=== PATIENT | male | born 1945 | race Asian ===

== ENCOUNTER 2018-02-20 10:51 | Observation (INO) | payer OTHER ==
[~2018-02-20] VITALS: Ht 165.1 cm; Wt 65.8 kg
--- NOTE | 2018-02-20 11:36 | ED CARDIAC/CP/PALPITATIONS ---
History of Present Illness General Chief Complaint: Chest Pain Stated Complaint: CP Source: patient, family Exam Limitations: no limitations Vital Signs & Intake/Output Vital Signs & Intake/Output Vital Signs Date Time Temp Pulse Resp B/P B/P Pulse O2 O2 Flow FiO2 Mean Ox Delivery Rate 02/20 1821 97.9 67 16 163/76 98 Room Air 02/20 1603 79 168/77 02/20 1533 97.3 49 21 173/83 02/20 1533 97.3 49 21 173/83 97 Room Air 02/20 1445 98.4 51 18 182/84 95 Room Air 02/20 1321 96.6 48 18 182/86 97 Room Air 02/20 1139 Room Air 02/20 1058 96.8 54 16 184/84 97 Allergies Coded Allergies: Penicillins (FEEL SICK PER PT 02/20/18) Sulfa (Sulfonamide Antibiotics) (+N +V 02/20/18) iodine (ITCHY 02/20/18) Reconcile Medications Allopurinol 300 MG TABLET 0.5 TAB PO DAILY GOUT (Reported) Atorvastatin Calcium 20 MG TABLET 1 TAB PO DAILY CHOLESTEROL (Reported) Azelastine/Fluticasone (Dymista Nasal Sebastian) 137 MCG-50 MCG/SPRAY SPRAY.PUMP 1 SPRAY NASB QPM ALLERGIES (Reported) Celecoxib 200 MG CAPSULE 1 CAP PO DAILY PAIN (Reported) Fenofibrate 160 MG TABLET 1 TAB PO DAILY CHOLESTEROL (Reported) Latanoprost (Xalatan) 0.005 % DROPS 1 GTT OS QPM GLAUCOMA (Reported) Triage Note: PT PRESENTS TO THE ER C/O HTN AND CHEST TIGHTNESS. PT STATES THAT THE BACK OF HIS HEAD FEELS TIGHT AND PAINFUL. PT ALSO STATES THAT HE IS NAUSEOUS. PT STATES THAT HIS LEFT ARM FEELS WEAK. PT ALSO STATES THAT HE FEELS HIS BREATH IS SHORT. PT STATES THAT HE FEELS MORE SHORT OF BREATH ON EX Triage Nurses Notes Reviewed? yes Onset: Abrupt Duration: day(s):, week(s): Timing: recent history Quality/Severity: moderate, severe Location: central Radiation: no radiation HPI: 72-year-old male comes into the emergency room for further evaluation of chest pain. Patient reports that he had a recent stress test this past October which was normal. No prior history of heart attacks. He reports that he for the past month has been experiencing some chest tightness that is intermittent. Some shortness of breath with exertion. Today he reported some nausea when he woke up. Denies any palpitations. Denies any abdominal pains. Denies any blood in his stool. Denies any dizziness. Denies any syncopal episodes. He saw his food service kitchen supervisor today who told him to come to the hospital to get more in depth testing done. Dr. Pimentel. (Patrick Jacques) Past History Travel History Traveled to [place] past 21 day No Medical History Any Pertinent Medical History? see below for history EENT: cataracts, glaucoma Cardiovascular: hypertension Renal: benign prost hyperplasia Surgical History Surgical History: non-contributory Psychosocial History What is your primary language Portuguese Tobacco Use: Never used Family History Hx Contributory? No (Patrick Jacques) Review of Systems Review of Systems Constitutional: Reports: no symptoms. EENTM: Reports: no symptoms. Respiratory: Reports: see HPI. Cardiovascular: Reports: see HPI. GI: Reports: no symptoms. Genitourinary: Reports: no symptoms. Musculoskeletal: Reports: no symptoms. Skin: Reports: no symptoms. Neurological/Psychological: Reports: no symptoms. Hematologic/Endocrine: Reports: no symptoms. Immunologic/Allergic: Reports: no symptoms. All Other Systems: Reviewed and Negative (Patrick Jacques) Physical Exam Physical Exam General Appearance: well developed/nourished, alert, awake Head: atraumatic, normal appearance Eyes: Bilateral: normal appearance, EOMI. Ears, Nose, Throat: normal ENT inspection, hearing grossly normal Neck: normal inspection Respiratory: normal breath sounds, no respiratory distress Cardiovascular: regular rate/rhythm Gastrointestinal: soft, non-tender Back: normal inspection Extremities: normal inspection, normal range of motion, no edema Neurologic/Psych: no motor/sensory deficits, awake, alert, oriented x 3, normal mood/affect, health and wellness instructor II-XII nml as tested Skin: intact, normal color Core Measures ACS in differential dx? No CVA/TIA Diagnosis No Sepsis Present: No Sepsis Focused Exam Completed? No (Patrick Jacques) Progress Differential Diagnosis: AMI, aortic dissection, atrial fibrillation, CHF/pulm edema, costochondritis, intracranial hemorrhage, musculoskeletal pain, myocarditis, pancreatitis, pericarditis, pneumonia, pneumothorax, pulmonary embolism, PUD/GERD, sepsis, unstable angina Plan of Care: Orders Procedure Date/time Status Regular Diet 02/21 D Active Heart Healthy Diet 02/21 B Active Regular Diet 02/20 D Active TROPONIN LEVEL 02/20 2300 Active EKG 02/20 2300 Active ECHOCARDIOGRAM 02/20 1823 Active Pathway - chart 02/20 1738 Active Code Status 02/20 1738 Active Patient Data 02/20 1557 Active OXYGEN SETUP (GEN) 02/20 1551 Active Saline Lock 02/[address] in observation 02/20 1551 Active Vital Signs 02/20 1551 Active Activity/Ambulation 02/20 1551 Active Code Status 02/20 1551 Complete TROPONIN LEVEL 02/20 1540 Complete EKG 02/20 1540 Active Add-on Test (ER Only) 02/20 1342 Active Intake & Output 02/20 1237 Active THYROID STIMULATING HORMONE 02/20 1140 Active TOTAL TRIODOTHYROXINE 02/20 1140 Active FREE T4 02/20 1140 Active Telemetry/Metal Furrer 02/20 1136 Active TROPONIN LEVEL 02/20 1136 Active PARTIAL THROMBOPLASTIN TIME 02/20 1136 Complete PROTHROMBIN TIME 02/20 1136 Complete D-DIMER 02/20 1136 Complete COMPREHENSIVE METABOLIC PANEL 02/20 1136 Active CBC WITHOUT DIFFERENTIAL 02/20 1136 Complete NIH Stroke Scale 02/20 1109 Active EKG 02/20 1053 Active TRC EVALUATION (GEN) 02/20 UNK Active Saline Lock 02/20 UNK Active House Staff 02/20 UNK Active Lab Add-on Test 02/20 UNK Active VTE Mechanical Prophylaxis 02/20 UNK Active Vital Signs 02/20 UNK Active Intake & Output 02/20 UNK Active Current Medications Sig/Fadi Start time Last Medication Dose Stop Time Status Admin Allopurinol 150 MG DAILY 02/21 1000 AC (Zyloprim) Amlodipine Besylate 5 MG DAILY 02/21 1000 UNVr (Norvasc) Fenofibrate 160 MG DAILY 02/21 1000 UNVr (Tricor) Omeprazole 40 MG DAILY AC 02/21 0700 CAN (Prilosec) Famotidine 20 MG BID 02/20 2200 UNVr (Pepcid) Heparin Sodium 5,000 UNIT Q8 02/20 2200 AC (Porcine) Latanoprost 1 GTT QPM 02/20 2200 AC (Xalatan) Atorvastatin Calcium 40 MG 1700 02/20 1745 AC (Lipitor) Laboratory Tests 02/20/18 1540: Troponin I < 0.01 02/20/18 1140: Anion Gap 14, Estimated GFR > 60, BUN/Creatinine Ratio 31.1 H, Glucose 87, Calcium 10.7 H, Total Bilirubin 1.0, AST 40, ALT 23, Alkaline Phosphatase 31, Troponin I < 0.01, Total Protein 7.7, Albumin 4.4, Globulin 3.3, Albumin/ Globulin Ratio 1.3, TSH 2.750, Free T4 Pending, Total T3 Pending, PT 11.2, INR 1.03, APTT 38 H, D-Dimer High Sensitivty < 200, CBC w Diff NO MAN DIFF REQ, RBC 3.91 L, MCV 101.0 H, MCH 35.2 H, MCHC 34.8, RDW 15.1 H, MPV 9.9, Gran % 53.6 , Lymphocytes % 35.6, Monocytes % 8.5, Eosinophils % 1.8, Basophils % 0.5, Absolute Granulocytes 2.3, Absolute Lymphocytes 1.5, Absolute Monocytes 0.4, Absolute Eosinophils 0.1, Absolute Basophils 0 Diagnostic Imaging: Viewed by Me: Radiology Read, CT Scan. Discussed w/RAD: Radiology Read, CT Scan. Radiology Impression: PATIENT: BENNY STORY PRESENT AGE: 72 PATIENT ACCOUNT NO: [id number] : 43 LOCATION: [facility] ORDERING PHYSICIAN: Patrick CAMARILLO SERVICE DATE: 02/20/18-1342 EXAM TYPE: CAT - CT CHEST WO IV CONTRAST EXAMINATION: CT CHEST WITHOUT CONTRAST CLINICAL INFORMATION: 72-year-old male with chest pain. Possible abnormality of right upper lung. COMPARISON: CXR from 02/20/2018 TECHNIQUE: Multidetector volumetric CT imaging of the chest was done. Axial MIP volume rendering provided. Sagittal and coronal reformatted images were obtained. DLP: 214 mGy-cm FINDINGS: LUNGS AND PLEURA: Trachea and central airways are widely patent and normal in caliber. Mild centrilobular emphysema. Mild atelectasis in dependent aspect of each lower lobe. Small nodules measuring up to 0.3 cm of the right middle lobe along the minor fissure (images 232 and 237, series 4). Also, there are a few other noncalcified, solid nodules of the right middle lobe, largest measuring up to 0.4 cm. No pulmonary mass, consolidation, edema or pleural effusion. MEDIASTINUM : The heart size is normal. Moderate atherosclerotic calcification of coronary arteries and thoracic aorta without aortic aneurysm. No pericardial effusion. No mediastinal mass. The esophagus and thyroid gland are unremarkable. LYMPHATICS: No pathologic sized axillary, hilar or mediastinal lymph nodes. UPPER ABDOMEN: There are cysts measuring 2.6 cm AP and 3 cm AP of the visualized left kidney. 1.2 cm cortical cyst of the partially visualized right kidney. Adrenal glands are unremarkable. There is a 0.5 cm calcification of the liver adjacent to the gallbladder fossa. No suspicious liver lesion observed on these noncontrast images. SKELETAL AND CHEST WALL: No aggressive osseous lesions. The opacity described on the recent chest radiograph represents hypertrophy (of no clinical significance) of the right anterior first rib end. IMPRESSION: 1. Small, noncalcified nodules of the right middle lobe measuring up to 0.4 cm. Based on the updated guidelines from the Fleischner Society, for nodules of this size, routine CT follow-up is not required in a low-risk patient and is considered optional at 12 months in a high risk patient. 2. Mild centrilobular emphysema. DICTATED BY: Chavez Davis MD DATE/TIME DICTATED:02/20/181445 SCRAP HANDLER:ANGELA DATE/TIME TRANSCRIBED:02/20/181445 CONFIDENTIAL, DO NOT COPY WITHOUT APPROPRIATE AUTHORIZATION. <Electronically signed in Other Vendor System> SIGNED BY: Chavez Davis MD 02/20/18 1459, PATIENT: BENNY STORY PRESENT AGE: 72 PATIENT ACCOUNT NO: [id number] : 43 LOCATION: [facility] ORDERING PHYSICIAN: Patrick CAMARILLO SERVICE DATE: 02/20/186 EXAM TYPE: RAD - XRY-CHEST XRAY, TWO VIEWS EXAMINATION: XR CHEST CLINICAL INFORMATION: Chest pain COMPARISON: None TECHNIQUE: 2 views of the chest were obtained. FINDINGS: Cardia mediastinal silhouette is within normal limits. Lungs are clear. Density projecting upon the right upper lung/ anterior first rib likely represents hypertrophic changes. Degenerative changes of the thoracic spine. IMPRESSION: Density right upper lung likely representing hypertrophic changes right anterior first rib. No definite evidence of acute or suspicious abnormality. DICTATED BY: Johny Ordoñez MD DATE/TIME DICTATED:1224 SCRAP HANDLER:ANGELA DATE/TIME TRANSCRIBED:02/20/181224 CONFIDENTIAL, DO NOT COPY WITHOUT APPROPRIATE AUTHORIZATION. <Electronically signed in Other Vendor System> SIGNED BY: Johny Ordoñez MD 02/20/18 1230 Initial ED EKG: normal sinus rhythm, rate (54), nonspecific ST T wave chg (Patrick Jacques) Departure Departure Disposition: STILL A PATIENT Condition: Stable Clinical Impression Primary Impression: Chest pain with moderate risk for cardiac etiology Secondary Impressions: Bradycardia Referrals: Gustabo IZAGUIRRE,Jj Hurtado (PCP/Family) Departure Forms: Customer Survey General Discharge Information Observation Note Spoke With: Ashwin IZAGUIRRE,[facility] Physician Advisor Notified: TERRY WORTHY DO Place Patient In: Non-ED OBS Care Area Rationale for Observation: My rational for observation is as follows . Serial troponins. Serial EKGs. Cardiac telemetry. Cardiac consultation. Symptomatic here in the emergency room. (Patrick Jacques) PA/SHIPPING AND RECEIVING MATERIAL HANDLER Co-Sign Statement Statement: ED Attending supervision documentation- x I saw and evaluated the patient. I have also reviewed all the pertinent lab results and diagnostic results. I agree with the findings and the plan of care as documented in the PA's/SHIPPING AND RECEIVING MATERIAL HANDLER's documentation. chest pain, bradycardia, HTN [] I have reviewed the ED Record and agree with the PA's/SHIPPING AND RECEIVING MATERIAL HANDLER's documentation. [] Additions or exceptions (if any) to the PAs/SHIPPING AND RECEIVING MATERIAL HANDLER's note and plan are summarized below: [] (Tracy IZAGUIRRE,Eyal) Critical Care Note Critical Care Note Critical Care Time: 30-74 min (35) (Patrick Jacques)
[2018-02-20 11:50] LABS: ABSOLUTE BASOPHIL COUNT 0 /CUMM (0.0-0.2); ABSOLUTE EOSINOPHIL COUNT 0.1 /CUMM (0.0-0.7); ABSOLUTE GRANULOCYTE CT 2.3 /CUMM (1.4-6.5); ABSOLUTE LYMPH COUNT 1.5 /CUMM (1.2-3.4); ABSOLUTE MONOCYTE COUNT 0.4 /CUMM (0.10-0.60); BASOPHIL % 0.5 % (0.0-2.0); EOSINOPHIL % 1.8 % (0-5); GRANULOCYTE % 53.6 % (42.2-75.2); HEMATOCRIT 39.5 % (42-52); MEAN CORPUSCULAR HGB 35.2 PG (27.0-31.0); MEAN CORPUSCULAR HGB CONC 34.8 G/DL (33.0-37.0); MEAN PLATELET VOLUME 9.9 FL (7.4-10.4); PLATELET COUNT 192 /CUMM (130-400); RBC DISTRIBUTION WIDTH 15.1 % (11.5-14.5); RED BLOOD CELL CT 3.91 /CUMM (4.70-6.10); WHITE BLOOD CELL COUNT 4.2 /CUMM (4.8-10.8)
[2018-02-20] MEDS ORDERED: FENOFIBRATE160 M1 PO (12:01)
[2018-02-20] MEDS ORDERED: CELECOXIB200 M1 PO (12:01)
[2018-02-20] MEDS ORDERED: DYMISTA NASAL S23 GM NASB (12:01)
[2018-02-20] MEDS ORDERED: ATORVASTATIN CA20 M1 PO (12:01)
[2018-02-20 12:03] LABS: PT 11.2 SEC (9.4-12.5); PTT 38 SEC (25-37)
[2018-02-20] MEDS ORDERED: ALLOPURINOL300 M1 PO (12:03)
[2018-02-20] MEDS ORDERED: XALATAN2.5 ML OS (12:03)
--- NOTE | 2018-02-20 12:30 | RADIOLOGY REPORT ---
EXAMINATION: XR CHEST CLINICAL INFORMATION: Chest pain COMPARISON: None TECHNIQUE: 2 views of the chest were obtained. FINDINGS: Cardia mediastinal silhouette is within normal limits. Lungs are clear. Density projecting upon the right upper lung/anterior first rib likely represents hypertrophic changes. Degenerative changes of the thoracic spine. IMPRESSION: Density right upper lung likely representing hypertrophic changes right anterior first rib. No definite evidence of acute or suspicious abnormality.
--- NOTE | 2018-02-20 14:59 | CT SCAN REPORT ---
EXAMINATION: CT CHEST WITHOUT CONTRAST CLINICAL INFORMATION: 72-year-old male with chest pain. Possible abnormality of right upper lung. COMPARISON: CXR from 02/20/2018 TECHNIQUE: Multidetector volumetric CT imaging of the chest was done. Axial MIP volume rendering provided. Sagittal and coronal reformatted images were obtained. DLP: 214 mGy-cm FINDINGS: LUNGS AND PLEURA: Trachea and central airways are widely patent and normal in caliber. Mild centrilobular emphysema. Mild atelectasis in dependent aspect of each lower lobe. Small nodules measuring up to 0.3 cm of the right middle lobe along the minor fissure (images 232 and 237, series 4). Also, there are a few other noncalcified, solid nodules of the right middle lobe, largest measuring up to 0.4 cm. No pulmonary mass, consolidation, edema or pleural effusion. MEDIASTINUM: The heart size is normal. Moderate atherosclerotic calcification of coronary arteries and thoracic aorta without aortic aneurysm. No pericardial effusion. No mediastinal mass. The esophagus and thyroid gland are unremarkable. LYMPHATICS: No pathologic sized axillary, hilar or mediastinal lymph nodes. UPPER ABDOMEN: There are cysts measuring 2.6 cm AP and 3 cm AP of the visualized left kidney. 1.2 cm cortical cyst of the partially visualized right kidney. Adrenal glands are unremarkable. There is a 0.5 cm calcification of the liver adjacent to the gallbladder fossa. No suspicious liver lesion observed on these noncontrast images. SKELETAL AND CHEST WALL: No aggressive osseous lesions. The opacity described on the recent chest radiograph represents hypertrophy (of no clinical significance) of the right anterior first rib end. IMPRESSION: 1. Small, noncalcified nodules of the right middle lobe measuring up to 0.4 cm. Based on the updated guidelines from the Fleischner Society, for nodules of this size, routine CT follow-up is not required in a low-risk patient and is considered optional at 12 months in a high risk patient. 2. Mild centrilobular emphysema.
--- NOTE | 2018-02-20 16:53 | History & Physical ---
[facility] 5711: General Information and HPI MD Statement: I have seen and personally examined BENNY MARISCAL and documented this H&P. The patient is a 72 year old M who presented with a patient stated chief complaint of chest discomport and shortness of breath.[]. 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 Patient reported that he was in his usual state of health 1-2 months back when he noticed having chest discomfort, central, during supine position, nonradiating, alliviating with changing his position to right to left or while walking around and it's not related to exertion. Patient reported that he also feeling having nausea with this chest discomfort. Patient also reported having shortness of breath with this chest discomfort but patient reported that the shortness of breath is more while speaking. He doesn't related the short of breath walking or exertion. Patient also reported that he has abdominal discomfort if he takes aspirin. Patient denied any palpitation, sweating, lightheadedness, headache, orthopnea, vomiting, loss of consciousness, trauma to chest, fever, chills, abdominal pain and dysuria. Patient reported that he had angiographically in the past and at that point the ruled out any coronary artery disease. He also told us that he had stress test in last October that was negative. Patient is following Dr. Rockwell for his heart problem. ED course: Vitals: Temperature 96.8, pulse 54, respiratory rate 16, blood pressure 184/84, pulse oximetry 97% on room air Labs: WBC count 4.2, hemoglobin 13.8, hematocrit 39.5, platelet count 192, sodium 142, potassium 4.3, BUN 28, creatinine 0.9, BUN/creatinine ratio 31.1, glucose 87, calcium patient 10.7, AST 40, ALT 23, alkaline phosphatase 31, troponin less than 0.01, d-dimer less than 200 Allergies/Medications Allergies: Coded Allergies: Penicillins (FEEL SICK PER PT 02/20/18) Sulfa (Sulfonamide Antibiotics) (+N +V 02/20/18) iodine (ITCHY 02/20/18) Home Med list Allopurinol 300 MG TABLET 0.5 TAB PO DAILY GOUT (Reported) Atorvastatin Calcium 20 MG TABLET 1 TAB PO DAILY CHOLESTEROL (Reported) Azelastine/Fluticasone (Dymista Nasal [place]) 137 MCG-50 MCG/SPRAY SPRAY.PUMP 1 SPRAY NASB QPM ALLERGIES (Reported) Celecoxib 200 MG CAPSULE 1 CAP PO DAILY PAIN (Reported) Fenofibrate 160 MG TABLET 1 TAB PO DAILY CHOLESTEROL (Reported) Latanoprost (Xalatan) 0.005 % DROPS 1 GTT OS QPM GLAUCOMA (Reported) Past History Travel History Traveled to [place] past 21 day No Medical History EENT: cataracts, glaucoma Cardiovascular: hypertension Renal: benign prost hyperplasia Surgical History Surgical History: non-contributory Review of Systems Review of Systems Constitutional: Reports: no symptoms. EENTM: Reports: no symptoms. Cardiovascular: Reports: chest pain. Denies: orthopena, palpitations, syncope. Respiratory: Reports: short of breath. Denies: cough, orthopnea, sputum production. GI: Reports: no symptoms. Genitourinary: Reports: no symptoms. Musculoskeletal: Reports: no symptoms. Skin: Reports: no symptoms. Neurological/Psychological: Reports: no symptoms. Exam & Diagnostic Data Last 24 Hrs of Vital Signs/I&O Vital Signs Date Time Temp Pulse Resp B/P B/P Pulse O2 O2 Flow FiO2 Mean Ox Delivery Rate 02/20 1603 79 168/77 02/20 1533 97.3 49 21 173/83 02/20 1533 97.3 49 21 173/83 97 Room Air 02/20 1445 98.4 51 18 182/84 95 Room Air 02/20 1321 96.6 48 18 182/86 97 Room Air 02/20 1139 Room Air 02/20 1058 96.8 54 16 184/84 97 Intake & Output 02/20 1600 02/20 0800 02/20 0000 Intake Total Output Total 150 Balance -150 Output, Urine 150 Patient 147 lb Weight Weight Reported by Patient Measurement Method Physical Exam General Appearance Alert, Oriented X3, Cooperative, No Acute Distress Skin No Rashes Skin Temp/Moisture Exam: Warm/Dry Sepsis Skin Exam (color): Normal for Ethnicity HEENT Atraumatic, PERRLA, EOMI Neck Supple Cardiovascular Normal S1, Normal S2 Lungs Clear to Auscultation Abdomen Soft, No Tenderness Neurological Normal Speech, Strength at 5/5 X4 Ext, Normal Tone, Sensation Intact Extremities No Edema Assessment/Plan Assessment: 72 YO M nonsmoker, 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 We will keep the patient under observation on telemetry floor to rule out any ischemic cardiac injury or arrhythmia. Chest pain: -Considering his symptoms looks like atypical chest pain but we will do serial EKG and troponins to rule out any ischemic cardiac injury. -Recent stress test was negative according to patient. -Considering his symptoms more likely due to GERD -We will give him famotidine. -Cardiology consult -Echocardiogram in a.m. -We will get medical records from his primary care physician and . Bradycardia: -We will monitor patient on telemetry floor to rule out any arrhythmia or symptomatic bradycardia. -Patient is asymptomatic, possibly bradycardia is physiologically normal for the patient. -Avoid B-brandi. Macrocytosis: -Elevated MCV -Possibly related to long-term use of Nexium in the past. -We will do peripheral smear -We will check his folic acid and vitamin B-12 level Lung nodule: -Incidental finding on imaging study. -Follow up with low dose CT scan as outpatient for further recommendations. History of hypertension: -We will start amlodipine -We will monitor his vitals Hypercalcemia: -Mildly elevated calcium -We will rule out primary hyperparathyroidism, considering patient's past medical history of nephrolithiasis. Dehydration: -Elevated BUN/creatinine ratio -We will encourage him to take oral fluids -Monitor input and output -We will check BEP tomorrow DVT prophylaxis: Mechanical and subcutaneous Lovenox CODE STATUS: Full code As Ranked By This Provider Problem List: 1. Bradycardia 2. Chest pain Core Measures/Misc (08/07) Acute Coronary Syndrome ACS Diagnosis: No Congestive Heart Failure Congestive Heart Failure Diagnosis No Cerebrovascular Accident CVA/TIA Diagnosis: No VTE (View Protocol) VTE Risk Factors Age>40 No Mechanical VTE Prophylaxis d/t N/A MechProphylax Ordered No VTE Pharm Prophylaxis d/t NA PharmProphylax ordered Sepsis (View protocol) Sepsis Present: No Margie Alejoet 02/20/18 1820: Resident Review Statement Resident Statement: examined this patient, discussed with merchandising intern, agreed with merchandising intern, amended to note Other Findings: Mr Mariscal is a 72-year-old gentleman with a PMHx of hypertension (not on any medications), hyperlipidemia, glaucoma (left eye blindness), BPH ( s/p TURP 2011 ), gout (on daily allopurinol), nephrolithiasis (s/p ESWL), left epididymitis ( chronic celecoxib therapy), bilateral sensorineural deafness, Non erosive GERD ( Negative EGD 2016 on Nexium for a long time), Macrocytosis ( secondary to Nexium use), came into the emergency room with a chief concern of chest tightness x one month. Reported chest tightness, when he lies down supine only, improves upon lying down on the side, no radiation and no aggravating factors. Recurrence almost daily. Remote history of prolonged treatment with PPI, currently off. Reported dyspnea upon speaking, but no dyspnea upon exertion at all. No orthopnea, paroxysmal nocturnal dyspnea.Reported occasional nausea, no association w/ food intake. No abdominal pain, no dysuria, no pedal edema, fever, cough, palpitations. No unintentional weight loss or weight gain. 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 No family history of coronary artery disease, nonsmoker, nonalcoholic. Underwent stress test in 2017, which was negative for any reversible ischemia. Reported family history of lung cancer, and was extensively worked up for lung nodules ( CT scan 2011, 2014 ). At the time of admission-temperature 96.8, pulse rate 54 (bradycardia), blood pressure 184/84 (improved to 168/77), pulse ox 97% on room air. General Exam: AAOx3, No acute distress, left eye blindness. Skin: No rashes, no breakdown;HEENT: PERRLA, EOMI;Neck: Supple, No JVD, No cervical lymphadenopathy; CVS: Reg Rate, Normal S1,S2, No MGR;Resp: Normal air entry, no ronchi/rales; Abdomen: Soft, No tenderness, Normal Bowel Sounds;Neuro: Normal Speech, Strength 5/5 b/l x 4 extremities, Sensation intact, CN III-XII NL, Reflexes 2+; Extremities: No cyanosis, no pedal edema. Pertinent Findings: FVC 4.2, hemoglobin 13.8, MCV 101 (macrocytosis), platelet 192, sodium 142, potassium 4.3, BUN 28, creatinine 0.9, calcium 10.7, AST 40, ALT 23, alkaline phosphatase 31, troponin I-0.01, 0.01, pending, INR 1.03. CXR- Density right upper lung likely representing hypertrophic changes right anterior first rib. No definite evidence of acute or suspicious abnormality. CT Chest- 1. Small, noncalcified nodules of the right middle lobe measuring up to 0.4 cm. 2. Mild centrilobular emphysema. EKG revealed T wave inversions in V2-V4 which are old. Bradycardia, no ST-T wave inversions or elevations. NE interval 172. Normal axis. Etiology in this case is likely GERD, however Unstable angina w/ symptoms of chest tightness need to be ruled out. He has positive cardiac risk factors male sex, age > 35/HLD/HTN. Other etiologies such as aortic dissection, myocarditis, pericarditis are to considered as differentials. Considering positional changes in his symptoms, GI related etiology is more likely. Other lab findings such as macrocytosis is likely due to PPI use, rule out myelodysplastic syndrome, leukemia. Mild elevation in serum calcium and hypertrophic changes in the right anterior first rib should be monitored closely, with differentials of BPH, primary hyperparathyroidism, lung malignancy in the differential. In regards to his family h/o of lung cancers w/ h/o of second hand smoke only, lung nodules could be monitored every 2 hrs. Records reviewed from [place], after obtaining consent from the pt. Problem list: #1 rule out ACS #2 gastroesophageal reflux disease #3 mild hypercalcemia #4 lung nodule right middle lobe ( stable ) #5 hypertrophic changes in the right anterior first rib #6 hypertension #7 Mixed hyperlipidemia #8 bradycardia #9 macrocytosis #1 Observed on telemetry for cardiac monitoring #2 aspirin stat and daily aspirin and statin #3 serial electrocardiograms, cardiac enzymes every 8 hours #4 sublingual nitroglycerin for pain control, if the pt has any chest pain. #5 IV morphine for pain relief, prn #6 Hold off on any metoprolol given h/o bradycardia. #7 IV heparin after conferring with cardiology only, if trops are elevated or has EKG changes. #8 amlodipine 5 mg by mouth 4 blood pressure control #9 recheck calcium in the a.m. If it's still elevated, IV fluids. #10 monitor the patient on telemetry for bradycardia. Avoid beta blockers at all costs. #11 possible workup for GERD as per GI that could be done as an outpatient. #12 avoid proton pump inhibitors., Consider famotidine instead. #13 aspirin, daily aspirin-patient reported GI upset, and refuses to take medication. Risks versus benefits discussed. #14 continue fenofibrate, and atorvastatin. Housekeeping: #1 DVT prophylaxis-subcutaneous heparin #2 GI prophylaxis-GI cocktail #3 CODE STATUS-full code.
--- NOTE | 2018-02-20 18:07 | PN- Att Addend ---
Attending Addendum Attending Brief Note Patient was seen and examined in the emergency room. Case discussed with the admitting resident. 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 Patient presents with the intermittent chest pressure symptoms for past 2- 3 months. Chest pressure is exacerbated by laying flat on his back and improves with the [place] 2 sites. Denies any difficulty breathing fever chills. He felt somewhat nauseous this morning. No recent sweating sore throat or URI symptoms or dysphagia. No shivering diarrhea. His blood pressure was elevated upon presentation. Patient was given hydralazine IV 10 mg. His exam is essentially unremarkable. Chest exam is clear and nontender. Heart sounds S1 plus S2 without any rubs or gallops. Abdomen soft nontender no organomegaly no guarding or rebound. Neuro exam is nonfocal Current Medications Sig/Fadi Start time Last Medication Dose Route Stop Time Status Admin Allopurinol 150 MG DAILY 02/21 1000 AC PO Aspirin 325 MG ONCE ONE 02/20 1700 DC PO 02/20 1701 Atorvastatin Calcium 40 MG 1700 02/20 1745 AC PO Fenofibrate 160 MG DAILY 02/21 1000 UNVr PO Heparin Sodium 5,000 UNIT Q8 02/20 2200 AC (Porcine) SC Hydralazine HCl 0 .STK-MED ONE 02/20 1531 DC .ROUTE Hydralazine HCl 10 MG ONCE ONE 02/20 1515 DC / IV 02/20 1516 1533 Latanoprost 1 GTT QPM 02/20 2200 AC OPH Omeprazole 40 MG DAILY AC 02/21 0700 AC PO Laboratory Tests 02/20/18 1540: Troponin I < 0.01 02/20/18 1140: Anion Gap 14, Estimated GFR > 60, BUN/Creatinine Ratio 31.1 H, Glucose 87, Calcium 10.7 H, Total Bilirubin 1.0, AST 40, ALT 23, Alkaline Phosphatase 31, Troponin I < 0.01, Total Protein 7.7, Albumin 4.4, Globulin 3.3, Albumin/ Globulin Ratio 1.3, TSH 2.750, PT 11.2, INR 1.03, APTT 38 H, D-Dimer High Sensitivty < 200, CBC w Diff NO MAN DIFF REQ, RBC 3.91 L, MCV 101.0 H, MCH 35.2 H, MCHC 34.8, RDW 15.1 H, MPV 9.9, Gran % 53.6, Lymphocytes % 35.6, Monocytes % 8.5, Eosinophils % 1.8, Basophils % 0.5, Absolute Granulocytes 2.3, Absolute Lymphocytes 1.5, Absolute Monocytes 0.4, Absolute Eosinophils 0.1, Absolute Basophils 0 Vital Signs Date Time Temp Pulse Resp B/P B/P Pulse O2 O2 Flow FiO2 Mean Ox Delivery Rate 02/20 1603 79 168/77 02/20 1533 97.3 49 21 173/83 04 1533 97.3 49 21 173/83 97 Room Air 02/20 1445 98.4 51 18 182/84 95 Room Air 02/20 1321 96.6 48 18 182/86 97 Room Air 02/20 1139 Room Air 02/20 1058 96.8 54 16 184/84 97 Intake & Output 02/20 1600 02/20 0800 02/20 0000 Intake Total Output Total 150 Balance -150 Output, Urine 150 Patient 147 lb Weight Weight Reported by Patient Measurement Method cxr Density right upper lung likely representing hypertrophic changes right anterior first rib. No definite evidence of acute or suspicious abnormality. ct chest 1. Small, noncalcified nodules of the right middle lobe measuring up to 0.4 cm. Based on the updated guidelines from the Fleischner Society, for nodules of this size, routine CT follow-up is not required in a low-risk patient and is considered optional at 12 months in a high risk patient. 2. Mild centrilobular emphysema. Assessment * Chest pressure-atypical and unlikely to be cardiac given recent stress test in October was negative. Given the symptoms get worse on laying flat I will consider possible GERD or hiatal hernia in the deferential. However patient will need to be ruled out. CT does not show any aortic dissection or dilation. Centrilobular emphysema seen on CT scan is unlikely to cause of his symptoms. * Uncontrolled BP * History of MCV elevation-patient is following up with insurance loss assessor, bone marrow aspirations be considered Plan * Observe on telemetry, check troponin 3 times. Check EKG. Cardiology input, echocardiogram to rule out pericarditis * Start oral Protonix or Prilosec twice a day; add oral antacid; patient could be considered for esophageal gram
[2018-02-20 18:43] VITALS: BP 158/70
--- NOTE | 2018-02-20 21:27 | ECHOCARDIOGRAM REPORT ---
BENNY STORY Age: 72 : 1945 Gender: M Exam Date: 02/20/2018 19:24 Exam Location: [address] Ht (in): 65 Wt (lb): 147 BSA: 1.76 BP: 163 / 76 Ordering Physician: Rocco Alejo MD Referring Physician: Beka Renae M.D. Technologist: Adina Matta [facility] Room Number: [id number] Indications: CHEST PAIN Rhythm: Technical Quality: Good FINDINGS Left Ventricle Left ventricular cavity size normal. Normal left ventricular wall thickness. No obvious regional wall motion abnormalities. Normal left ventricular ejection fraction visually estimated at > 55 %. Right Ventricle Normal right ventricular size and function. Right Atrium Normal right atrial size. Left Atrium Left atrial size at the upper limits of normal. Mitral Valve No evidence for mitral valve prolapse. No mitral stenosis. Mild mitral annular calcification. Mild mitral regurgitation. Aortic Valve No aortic stenosis. Structurally normal trileaflet aortic valve. Trace to mild aortic regurgitation. Tricuspid Valve Structurally normal tricuspid valve. Mild tricuspid regurgitation. No evidence of pulmonary hypertension. Pulmonic Valve Pulmonic valve not well visualized, grossly normal. Pericardium No pericardial effusion. Great Vessels Normal size aortic root and proximal ascending aorta. CONCLUSIONS Left ventricular cavity size normal. Normal left ventricular wall thickness. No obvious regional wall motion abnormalities. Normal left ventricular ejection fraction visually estimated at > 55 %. Normal right ventricular size and function. Left atrial size at the upper limits of normal. No evidence of pulmonary hypertension. No pericardial effusion. Beka Renae M.D. (Electronically Signed) Final Date: 20 February 2018 21:27 MEASUREMENTS (Male / Female) Normal Values 2D ECHO LV Diastolic Diameter PLAX 4.6 cm 4.2 - 5.9 / 3.9 - 5.3 cm LV Systolic Diameter PLAX 2.5 cm 2.1 - 4.0 cm LV Fractional Shortening PLAX 45.7 % 25 - 46 % LV Ejection Fraction 2D Teich 77.1 % IVS Diastolic Thickness 1.0 cm LVPW Diastolic Thickness 1.0 cm LV Relative Wall Thickness 0.4 RV Internal Dim ED PLAX 3.2 cm 1.9 - 3.8 cm LVOT Diameter 2.1 cm Aortic Root Diameter 2.9 cm LA Systolic Diameter LX 3.5 cm 3.0 - 4.0 / 2.7 - 3.8 cm LA Volume 41.0 cm 18 - 58 / 22 - 52 cm Ascending Aorta Diameter 3.3 cm DOPPLER AV Peak Velocity 153.0 cm/s AV Peak Gradient 9.4 mmHg AV Mean Velocity 94.8 cm/s AV Mean Gradient 4.0 mmHg AV Velocity Time Integral 36.7 cm LVOT Peak Velocity 122.0 cm/s LVOT Peak Gradient 6.0 mmHg LVOT Mean Velocity 75.2 cm/s LVOT Mean Gradient 3.0 mmHg LVOT Velocity Time Integral 26.9 cm LVOT Stroke Volume 93.2 cm AV Area Cont Eq vti 2.5 cm AV Area Cont Eq pk 2.8 cm MV Peak Velocity 113.0 cm/s MV Peak Gradient 5.1 mmHg MV Mean Velocity 59.9 cm/s MV Mean Gradient 2.0 mmHg Mitral E Point Velocity 90.8 cm/s Mitral A Point Velocity 87.9 cm/s Mitral E to A Ratio 1.0 MV PHT Velocity 89.2 cm/s MV Deceleration Dillon 195.0 cm/s MV Pressure Half Time 137.2 ms MV Area PHT 1.6 cm MV Deceleration Time 198.0 ms TR Peak Velocity 269.0 cm/s TR Peak Gradient 28.9 mmHg Right Atrial Pressure 5.0 mmHg Pulmonary Artery Systolic Pressu 33.9 mmHg Right Ventricular Systolic Press 33.9 mmHg PV Peak Velocity 167.0 cm/s PV Peak Gradient 11.2 mmHg PV Mean Velocity 94.1 cm/s PV Mean Gradient 4.0 mmHg PV Velocity Time Integral 31.1 cm LV E' Lateral Velocity 9.1 cm/s Mitral E to LV E' Lateral Ratio 10.0 LV E' Septal Velocity 6.8 cm/s Mitral E to LV E' Septal Ratio 13.3
[2018-02-20 22:16] VITALS: BP 139/80
[2018-02-21 06:56] VITALS: BP 142/76
--- NOTE | 2018-02-21 07:04 | PN-Observation ---
YevgeniyDouglas 02/21/18 0704: Observation Note Observation Note _ I have personally examined BENNY STORY. him disposition is uncertain at this time. Before a determination can be made, he requires continued observation for the following reasons for chest pain []. 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 We will keep the patient under observation on telemetry floor to rule out any ischemic cardiac injury or arrhythmia. Problem List: 1. Chest pain 2. Bradycardia 3. Dehydration Plan: Chest pain: -Troponin remained negative. -Recent stress test was negative according to patient. -Considering his symptoms could be more likely due to GERD -We will give him famotidine. -Echocardiogram -NPO for cardiac cath -Patient is being transferred to [facility] for cardiac cath as recommended by cardiology. Bradycardia:. -Bradycardia is new for patient could be due to ischemia so patient is being transferred to [facility] for cardiac cath. -Avoid B-brandi. Macrocytosis: -Elevated MCV -Possibly related to long-term use of Nexium in the past. -We will do peripheral smear -We will check his folic acid and vitamin B-12 level Lung nodule: -Incidental finding on imaging study. -Follow up outpatient for further recommendations. History of hypertension: -Continue amlodipine -We will monitor his vitals Hypercalcemia: -Mildly elevated calcium -We will rule out primary hyperparathyroidism, considering patient's past medical history of nephrolithiasis. Dehydration: -Elevated BUN/creatinine ratio -We will encourage him to drink orally. DVT prophylaxis: Mechanical and subcutaneous Lovenox CODE STATUS: Full code Subjective Follow-up For: Chest pain Tele-Events Since Last Visit: Sinus rhythm with heart rate 4261 Subjective: No overnight events. Patient remained afebrile for the pain is seen and examined this morning. Patient denied palpitation, short of breath, nausea, vomiting, chills, fever. Patient is nothing by mouth and he is going for cardiac cath to [facility]. Review of Systems Constitutional: Reports: no symptoms. EENTM: Reports: no symptoms. Cardiovascular: Reports: no symptoms. Respiratory: Reports: short of breath. Gastrointestinal: Reports: see HPI. Genitourinary: Reports: no symptoms. Musculoskeletal: Reports: no symptoms. Neurological/Psychological: Reports: no symptoms. Objective Last 24 Hrs of Vital Signs/I&O Vital Signs Date Time Temp Pulse Resp B/P B/P Pulse O2 O2 Flow FiO2 Mean Ox Delivery Rate 02/21 0937 61 142/76 04/ 0853 Room Air 02/21 0656 98.1 50 18 142/76 98 Room Air 02/20 2216 98.1 59 16 139/80 95 04/ 1843 98.4 60 22 158/70 98 04/ 1821 97.9 67 16 163/76 98 Room Air 02/20 1603 79 168/77 02/20 1533 97.3 49 21 173/83 02/20 1533 97.3 49 21 173/83 97 Room Air 02/20 1445 98.4 51 18 182/84 95 Room Air 02/20 1321 96.6 48 18 182/86 97 Room Air 02/20 1139 Room Air Intake & Output 02/21 1600 02/21 0800 02/21 0000 Intake Total 300 360 Output Total Balance 300 360 Intake, Oral 300 360 Patient 145 lb Weight Physical Exam General Appearance: Alert, Oriented X3, Cooperative, No Acute Distress Skin: No Rashes Skin Temp/Moisture Exam: Warm/Dry HEENT: Atraumatic, PERRLA, EOMI Neck: Supple Cardiovascular: Normal S1, Normal S2 Lungs: Clear to Auscultation Abdomen: Soft, No Tenderness Neurological: Normal Speech, Strength at 5/5 X4 Ext, Normal Tone, Sensation Intact Extremities: No Cyanosis, No Edema Mildred Monsalve MD 02/21/18 1120: Addendum Addendum 72M PMH HTN, HLD, glaucoma (left eye blindness), BPH s/p TURP 2011, gout, nephrolithiasis presenting with 1 month of daily chest pain at rest, found to have very slight ST depressions in anterior leads, bradycardic 55. Patient is comfortable and has no complaints at this time. He reports a negative cardiac cath >10 years ago. He does not smoke and has no family history of CAD, though he does have a family history of lung cancer. 1. Unstable angina Plan - Will transfer for cardiac catheterization - Continue ASA and statin - Follow cardiology recommendations - Continue home medications
[2018-02-21 08:28] LABS: ABSOLUTE BASOPHIL COUNT 0 /CUMM (0.0-0.2); ABSOLUTE EOSINOPHIL COUNT 0.1 /CUMM (0.0-0.7); ABSOLUTE GRANULOCYTE CT 2.4 /CUMM (1.4-6.5); ABSOLUTE LYMPH COUNT 1.6 /CUMM (1.2-3.4); ABSOLUTE MONOCYTE COUNT 0.4 /CUMM (0.10-0.60); BASOPHIL % 0.5 % (0.0-2.0); EOSINOPHIL % 1.9 % (0-5); GRANULOCYTE % 53.5 % (42.2-75.2); HEMATOCRIT 41.1 % (42-52); MEAN CORPUSCULAR HGB 34.9 PG (27.0-31.0); MEAN CORPUSCULAR VOLUME 102.7 FL (80.0-94.0); MEAN PLATELET VOLUME 10.3 FL (7.4-10.4); PLATELET COUNT 157 /CUMM (130-400); RBC DISTRIBUTION WIDTH 15.7 % (11.5-14.5); RED BLOOD CELL CT 4.01 /CUMM (4.70-6.10); WHITE BLOOD CELL COUNT 4.5 /CUMM (4.8-10.8)
[2018-02-21 09:37] VITALS: BP 142/76
--- NOTE | 2018-02-21 09:56 | Cons- Cardiology ---
General Information and HPI Consulting Request Date of Consult: 02/21/18 Requested By: Mildred Monsalve MD Reason for Consult: Chest pain Source of Information: patient, old records Exam Limitations: no limitations History of Present Illness: Primary corporate planner: Merlyn The patient is 72-year-old gentleman with a past medical history of hypertension , hyperlipidemia and gastroesophageal reflux disease. He presents to our hospital with symptoms of chest discomfort. The patient states he has been experiencing symptoms of chest discomfort for a period of approximately 1-2 months. His description of the chest discomfort has been slightly inconsistent with different interviewers; however, he states currently having symptoms with activity such as stair climbing. Symptoms are of a mild to moderate intensity, substernal in nature and accompanied with dyspnea. There is no significant radiation of symptoms generally, and there is no concurrent palpitations nor lightheadedness nor diaphoresis. No other clear exacerbating or alleviating factors were noted. On the day of arrival, he describes symptoms of chest discomfort as substernal with occasional radiation to his neck: However, this was not associated with activity. On arrival to the emergency room, an initial EKG demonstrated 1-1-1/[address] depression seen within the anterior leads, which had subsequently improved on further EKGs. He has ruled out a myocardial infarction by troponin isoenzymes. Of note, the patient underwent an exercise stress test as well as echocardiogram approximately 5 months ago with negative results. He had undergone a cardiac catheterization in 2003 which demonstrated nonocclusive disease only. Allergies/Medications Allergies: Coded Allergies: Penicillins (FEEL SICK PER PT 02/20/18) Sulfa (Sulfonamide Antibiotics) (+N +V 02/20/18) iodine (ITCHY 02/20/18) Home Med List: Allopurinol 300 MG TABLET 0.5 TAB PO DAILY GOUT (Reported) Atorvastatin Calcium 20 MG TABLET 1 TAB PO DAILY CHOLESTEROL (Reported) Azelastine/Fluticasone (Dymista Nasal S[place]) 137 MCG-50 MCG/SPRAY SPRAY.PUMP 1 SPRAY NASB QPM ALLERGIES (Reported) Celecoxib 200 MG CAPSULE 1 CAP PO DAILY PAIN (Reported) Fenofibrate 160 MG TABLET 1 TAB PO DAILY CHOLESTEROL (Reported) Latanoprost (Xalatan) 0.005 % DROPS 1 GTT OS QPM GLAUCOMA (Reported) Current Medications: Current Medications Sig/Fadi Start time Last Medication Dose Route Stop Time Status Admin Allopurinol 150 MG DAILY 02/21 1000 AC 02/21 PO 0937 Amlodipine Besylate 5 MG DAILY 02/21 1000 AC 02/21 PO 0937 Aspirin 325 MG ONCE ONE 02/20 1700 DC 04/ PO 02/20 1701 1822 Atorvastatin Calcium 40 MG 1700 02/20 1745 AC PO Famotidine 20 MG BID 02/20 2200 AC 02/21 PO 0937 Fenofibrate 145 MG DAILY 02/21 1000 AC 02/21 PO 0937 Heparin Sodium 5,000 UNIT Q8 02/20 2200 AC (Porcine) SC Hydralazine HCl 0 .STK-MED ONE 02/20 1531 DC .ROUTE Hydralazine HCl 10 MG ONCE ONE 02/20 1515 DC 02/20 IV 02/20 1516 1533 Latanoprost 1 GTT QPM 02/20 2200 AC 02/20 OPH 2048 Melatonin 5 MG AT BEDTIME 02/20 2200 AC 02/20 PO 2050 Omeprazole 40 MG DAILY AC 02/21 0700 CAN PO Omeprazole 20 MG DAILY AC 02/21 0700 AC 02/21 PO 0603 Review of Systems Review of Systems: The review of systems is negative for palpitations nor lightheadedness, positive for chest pain as above. The remainder of the 14 point review of systems is noncontributory with the exception of above. Past History Travel History Traveled to [place] past 21 day No Medical History Blood Transfusion Hx: No EENT: cataracts, glaucoma Cardiovascular: hypertension Renal: benign prost hyperplasia Surgical History Surgical History: non-contributory Psychosocial History Smoking Status: Never Smoked Exam & Diagnostic Data Vital Signs and I&O Vital Signs Date Time Temp Pulse Resp B/P B/P Pulse O2 O2 Flow FiO2 Mean Ox Delivery Rate 02/21 0937 61 142/76 / 0853 Room Air / 0656 98.1 50 18 142/76 98 Room Air / 2216 98.1 59 16 139/80 95 04/ 1843 98.4 60 22 158/70 98 / 1821 97.9 67 16 163/76 98 Room Air 04/ 1603 79 168/77 04/ 1533 97.3 49 21 173/83 04/ 1533 97.3 49 21 173/83 97 Room Air 02/20 1445 98.4 51 18 182/84 95 Room Air 04/ 1321 96.6 48 18 182/86 97 Room Air 02/20 1139 Room Air 02/20 1058 96.8 54 16 184/84 97 Intake & Output 02/21 0802/21 0000 02/20 0802/20 0000 Intake Total 300 360 Output Total 150 Balance 300 360 -150 Intake, Oral 300 360 Output, Urine 150 Patient 145 lb 147 lb Weight Weight Reported by Patient Measurement Method Physical Exam: General: Nontoxic, no apparent distress. HEENT: Sclera and conjunctiva within normal limits, without xanthelasmas. Neck: Carotids 2+ without bruits. Respiratory: Clear to auscultation, air movement is good, without accessory respiratory muscle use. Heart: Regular rate and rhythm, without murmurs, without JVD. Abdomen: Soft, nontender, no masses, normoactive bowel sounds. Extremities: Without clubbing, cyanosis, without edema. Neuro: Nonfocal exam, strength, 5 out of 5 Skin: Within normal limits without lesions. Psych: Mood and affect: Normal Labs/Kai Results: Laboratory Tests 02/21 02/20 02/20 0641 2305 1540 Chemistry Sodium (137 - 145 mmol/L) 144 Potassium (3.5 - 5.1 mmol/L) 3.8 Chloride (98 - 107 mmol/L) 108 H Carbon Dioxide (22 - 30 mmol/L) 23 Anion Gap (5 - 16) 12 BUN (9 - 20 mg/dL) 28 H Creatinine (0.7 - 1.2 mg/dL) 1.0 Estimated GFR (>60 ml/min) > 60 BUN/Creatinine Ratio (7 - 25 %) 28.0 H Calcium (8.4 - 10.2 mg/dL) 9.8 Troponin I (<0.11 ng/ml) < 0.01 < 0.01 Triglycerides (<150 mg/dL) 158 H Cholesterol (< 200 MG/DL) 171 LDL Cholesterol, Calc (65 - 129 mg/dL) 96 HDL Cholesterol (40 - 60 mg/dL) 44 Cholesterol/HDL Ratio (0.00 - 4.88 %) 4 Hematology CBC w Diff NO MAN DIFF REQ WBC (4.8 - 10.8 /CUMM) 4.5 L RBC (4.70 - 6.10 /CUMM) 4.01 L Hgb (14.0 - 18.0 G/DL) 14.0 Hct (42 - 52 %) 41.1 L MCV (80.0 - 94.0 FL) 102.7 H MCH (27.0 - 31.0 PG) 34.9 H MCHC (33.0 - 37.0 G/DL) 34.0 RDW (11.5 - 14.5 %) 15.7 H Plt Count (130 - 400 /CUMM) 157 MPV (7.4 - 10.4 FL) 10.3 Gran % (42.2 - 75.2 %) 53.5 Lymphocytes % (20.5 - 51.1 %) 34.7 Monocytes % (1.7 - 9.3 %) 9.4 H Eosinophils % (0 - 5 %) 1.9 Basophils % (0.0 - 2.0 %) 0.5 Absolute Granulocytes (1.4 - 6.5 /CUMM) 2.4 Absolute Lymphocytes (1.2 - 3.4 /CUMM) 1.6 Absolute Monocytes (0.10 - 0.60 /CUMM) 0.4 Absolute Eosinophils (0.0 - 0.7 /CUMM) 0.1 Absolute Basophils (0.0 - 0.2 /CUMM) 0 04/02 1140 Chemistry Sodium (137 - 145 mmol/L) 142 Potassium (3.5 - 5.1 mmol/L) 4.3 Chloride (98 - 107 mmol/L) 107 Carbon Dioxide (22 - 30 mmol/L) 22 Anion Gap (5 - 16) 14 BUN (9 - 20 mg/dL) 28 H Creatinine (0.7 - 1.2 mg/dL) 0.9 Estimated GFR (>60 ml/min) > 60 BUN/Creatinine Ratio (7 - 25 %) 31.1 H Glucose (65 - 99 mg/dL) 87 Calcium (8.4 - 10.2 mg/dL) 10.7 H Total Bilirubin (0.2 - 1.3 mg/dL) 1.0 AST (17 - 59 U/L) 40 ALT (21 - 72 U/L) 23 Alkaline Phosphatase (< 127 U/L) 31 Troponin I (<0.11 ng/ml) < 0.01 Total Protein (6.3 - 8.2 g/dL) 7.7 Albumin (3.5 - 5.0 g/dL) 4.4 Globulin (1.9 - 4.2 gm/dL) 3.3 Albumin/Globulin Ratio (1.1 - 2.2 %) 1.3 TSH (0.270 - 4.200 uIU/mL) 2.750 Free T4 (0.78 - 2.44 ng/dL) 1.09 Total T3 (0.97 - 1.69 ng/mL) 1.11 Coagulation PT (9.4 - 12.5 SEC) 11.2 INR (0.90 - 1.17) 1.03 APTT (25 - 37 SEC) 38 H D-Dimer High Sensitivty (0 - 243 ng/ml) < 200 Hematology CBC w Diff NO MAN DIFF REQ WBC (4.8 - 10.8 /CUMM) 4.2 L RBC (4.70 - 6.10 /CUMM) 3.91 L Hgb (14.0 - 18.0 G/DL) 13.8 L Hct (42 - 52 %) 39.5 L MCV (80.0 - 94.0 FL) 101.0 H MCH (27.0 - 31.0 PG) 35.2 H MCHC (33.0 - 37.0 G/DL) 34.8 RDW (11.5 - 14.5 %) 15.1 H Plt Count (130 - 400 /CUMM) 192 MPV (7.4 - 10.4 FL) 9.9 Gran % (42.2 - 75.2 %) 53.6 Lymphocytes % (20.5 - 51.1 %) 35.6 Monocytes % (1.7 - 9.3 %) 8.5 Eosinophils % (0 - 5 %) 1.8 Basophils % (0.0 - 2.0 %) 0.5 Absolute Granulocytes (1.4 - 6.5 /CUMM) 2.3 Absolute Lymphocytes (1.2 - 3.4 /CUMM) 1.5 Absolute Monocytes (0.10 - 0.60 /CUMM) 0.4 Absolute Eosinophils (0.0 - 0.7 /CUMM) 0.1 Absolute Basophils (0.0 - 0.2 /CUMM) 0 Assessment/Plan Assessment/Plan The patient is 72-year-old gentleman with a past medical history of hypertension , hyperlipidemia and gastroesophageal reflux disease. He presents to our hospital with symptoms of chest discomfort. He has subsequently ruled out for a myocardial infarction via serial troponin isoenzymes; however, had an abnormal EKG upon presentation with anterior lead ST depressions. Chest pain, abnormal EKG: The patient presents with atypical symptoms for an ischemic cardiac etiology, and has had a negative exercise stress test approximately 5 months ago. Despite this, he had dynamic EKG changes upon arrival and has elevated cardiac risk factors. We have discussed options including rest test with imaging, coronary CTA and repeat cardiac catheterization. As he did have EKG changes, we will transfer him to [facility] today for a cardiac catheterization to better delineate his current coronary anatomy. This was discussed with the patient and his . Given his bradycardia, beta blockers will not be administered. He will maintain on aspirin and a statin, and dual antiplatelet therapy will be initiated in the lab if needed. Bradycardia: The patient has asymptomatic bradycardia. In review of his outpatient exercise stress test, chronotropic competence was present, and we will therefore managed conservatively with observation at this time. Further recommendations made based on results of his cardiac catheterization. Hypertension: In review of the patient's outpatient blood pressures, he has been overall well controlled and I will therefore maintain his current outpatient regimen and follow. And KARL inhibitor/angiotensin receptor brandi may be considered blood pressures remain elevated. Thank you for allowing us to participate in the care of your patient. Please do not hesitate to contact us further with any questions. Sincerely, Alex Sears MD [facility] Consult Acknowledgment - Thank you for your consult request.
--- NOTE | 2018-02-21 12:23 | Patient Discharge Instructions ---
Discharge Instructions General Discharge Information You were seen/treated for: Chest pain Special Instructions: -Please follow-up with your primary care -physician after discharge -Please follow-up with your cement and concrete plant worker after discharge Acute Coronary Syndrome Inclusion Criteria At DC or during hospital stay patient has or had the following: ACS DIAGNOSIS No Discharge Core Measures Meds if any: Prescribed or Continued at Discharge Meds if any: NOT Prescribed or Continued at Discharge Congestive Heart Failure Inclusion Criteria At DC or during hospital stay patient has or had the following: CHF DIAGNOSIS No Discharge Core Measures Meds if any: Prescribed or Continued at Discharge Meds if any: NOT Prescribed or Continued at Discharge Cerebrovascular accident Inclusion Criteria At DC or during hospital stay patient has or had the following: CVA/TIA Diagnosis No Discharge Core Measures Meds if any: Prescribed or Continued at Discharge Meds if any: NOT Prescribed or Continued at Discharge Venous thromboembolism Inclusion Criteria VTE Diagnosis No VTE Type NONE VTE Confirmed by (Test) NONE Discharge Core Measures - Per Current guidelines, there needs to be overlap - treatment for the first 5 days of Warfarin therapy. - If discharged on Warfarin prior to 5 days of - overlap therapy, the patient will need to be - assessed for post discharge needs including - *Post discharge parental anticoagulation - *Warfarin and/or parental anticoagulation education - *Follow up date to check INR post discharge At least 5 days overlap therapy as Inpatient Yes Meds if any: Prescribed or Continued at Discharge Note: Overlap Therapy is Warfarin and Anticoagulant Meds if any: NOT Prescribed or Continued at Discharge
--- NOTE | 2018-02-21 12:41 | Discharge Summary ---
Visit Information Visit Dates Admission Date: 02/20/18 Discharge Date: 02/21/18 Hospital Course Course Attending Physician: Mildred Monsalve MD Primary Care Physician: Gustabo IZAGUIRRE,Jj Hurtado Hospital Course: Mr. Mariscal is a 72-year-old gentleman with past medical history of hypertension not on any medication, hyperlipidemia, glaucoma with left eye blindness, BPH status post TURP 2011), gout, nephrolithiasis (s/p ESWL), left epididymitis ( chronic celecoxib therapy), bilateral sensorineural deafness, Non erosive GERD ( Negative EGD 2016 on Nexium for a long time), Macrocytosis ( secondary to Nexium use) who presented to ED with chief complaint of chest tightness for 1 to 2 month. Patient description of his chest tightness has been slightly inconsistent with different interviewers in terms of activity related chest pain. On admission he reported chest pain on laying down that improves by laying on his side or sitting up however reported to the associate store director pain with activities such as stairs climbing. Symptoms are of a mild to moderate intensity, substernal in nature and accompanied with dyspnea without radiation, palpitation, lightheadedness or diaphoresis. Patient had recent negative exercise stress test 5 months ago. On presentation vitals temperature 96.8, pulse rate 54 (bradycardia), blood pressure 184/84 (improved to 168/77), pulse ox 97% on room air. General Exam: AAOx3, No acute distress, left eye blindness. Skin: No rashes, no breakdown;HEENT: PERRLA, EOMI;Neck: Supple, No JVD, No cervical lymphadenopathy; CVS: Reg Rate, Normal S1,S2, No MGR;Resp: Normal air entry, no ronchi/rales; Abdomen: Soft, No tenderness, Normal Bowel Sounds;Neuro: Normal Speech, Strength 5/5 b/l x 4 extremities, Sensation intact, CN III-XII NL, Reflexes 2+; Extremities: No cyanosis, no pedal edema. Pertinent Findings: FVC 4.2, hemoglobin 13.8, MCV 101 (macrocytosis), platelet 192, sodium 142, potassium 4.3, BUN 28, creatinine 0.9, calcium 10.7, AST 40, ALT 23, alkaline phosphatase 31, troponin I-0.01, 0.01, pending, INR 1.03. CXR- Density right upper lung likely representing hypertrophic changes right anterior first rib. No definite evidence of acute or suspicious abnormality. CT Chest- 1. Small, noncalcified nodules of the right middle lobe measuring up to 0.4 cm. 2. Mild centrilobular emphysema. Cardiac consultation was obtained, patient was found to have dynamic anterior lead ST depression, troponin negative 3. Was also found to have Asymptomatic bradycardia. By reviewing his outpatient exercise stress test by associate store director, patient had chronotropic competence. Patient will be transferred to [facility] today for cardiac catheterization to better visualize the coronary artery anatomy. Allergies: Coded Allergies: Penicillins (FEEL SICK PER PT 02/20/18) Sulfa (Sulfonamide Antibiotics) (+N +V 02/20/18) iodine (ITCHY 02/20/18) Disposition Summary Disposition Principal Diagnosis: Chest pain with abnormal EKG Additional Diagnosis: Bradycardia Discharge Disposition: other general hospital Discharge Instructions General Discharge Information Code Status: Full Code Patient's Diet: N.p.o. at 10 AM Patient's Activity: As tolerated Follow-Up Instructions/Appts: Please follow-up with your PCP after discharge Please follow-up with your associate store director after discharge Medications at Discharge Discharge Medications: Continue taking these medications: Atorvastatin Calcium (Atorvastatin Calcium) 20 MG TABLET 1 Tablet ORAL DAILY Qty = 90 Comments: NOT GIVEN IN HOSPITAL Fenofibrate (Fenofibrate) 160 MG TABLET 1 Tablet ORAL DAILY Qty = 90 Comments: Last Taken: 02/21/18 Time: 936 Celecoxib (Celecoxib) 200 MG CAPSULE 1 Capsule ORAL DAILY Qty = 180 Comments: NOT GIVEN IN HOSPITAL Azelastine/Fluticasone (Dymista Nasal [place]) 137 MCG-50 MCG/SPRAY SPRAY.PUMP 1 [place] Both sides of nose Every night Qty = 69 Comments: NOT GIVEN IN HOSPITAL Allopurinol (Allopurinol) 300 MG TABLET 0.5 Tablet ORAL DAILY Qty = 90 Comments: Last Taken: 02/21/18 Time: 936 Latanoprost (Xalatan) 0.005 % DROPS 1 Drop Left Eye Every night Qty = 5 Comments: Last Taken: 02/21/18 Time: 2047 Copies To: Gustabo IZAGUIRRE,Jj Hurtado
== END 2018-02-21 13:38 | disposition hospice, inpatient (51) ==
LOC: EDSEX 10:51 → ERH 10:51 → 1NO 15:51 → ERHI 15:51 → ENTRNSPT 18:10 → EDTRNSPTSTS 18:27 → EDTRNSPT 18:27 → 1NO 18:35 → CMPTRNSPT 18:47 → 1NO 02-21 07:34 → ENPENDDIS 02-21 12:42 → 1NO 02-21 13:38
PROVIDERS: Internal Medicine Endocrinology, Diabetes & Metabolism; Physician Assistant Medical
DX: R07.9 Chest pain, unspecified (principal); H40.9 Unspecified glaucoma; I10 Essential (primary) hypertension; N40.0 Benign prostatic hyperplasia without lower urinary tract symptoms; R00.1 Bradycardia, unspecified
CPT/HCPCS: 6020; 36592; 71046; 82436; 93005; 93010; 93306; 96374; 99291; G0378; J0360; J1644